=== PATIENT | male | born 1995 | race Caucasian/White ===

== ENCOUNTER 2021-11-03 15:57 | Emergency (ER) | payer OTHER, SELFPAY ==
[2021-11-03] VITALS (8 sets, daily range): BP systolic 123–127; BP diastolic 78–88; PULSE 68–80; RESP 15–18; TEMP 36.4–36.9; O2SAT 97–98; BMI 17.9
--- NOTE | 2021-11-03 18:02 | CM.ED ---
Social Work Consult: Mental Health evaluation Referral source: Dr. Ferguson Informant: Patient, patient father, and patient girlfriend. This protective services social worker noting that patient does not have insurance. This protective services social worker to patient room. Patient, patient father and patient girlfriend report that patient has insurance but unable to confirm which provider as insurance is through patient step-father. Patient girlfriend, Ronaldo working on obtaining insurance information for patient. Will continue to follow. Thang GREEN, ANETTE
[2021-11-03 18:15] LABS: Absolute Lymphocyte Count 1.57 X10^3/uL (0.83-4.51); Absolute Neutrophil Count 6.3 X10^3/uL (2.0-7.7); Basophil# 0.02 X10^3/uL; Basophil% 0.2 % (0-1); Eosinophil# 0.05 X10^3/uL; Eosinophils% 0.6 % (0-5); Hematocrit 45.1 % (40-54); Hemoglobin 15.5 g/dL (13.0-16.5); Lymphocyte # 1.57 X10^3/ul (0.83-4.51); Lymphocyte % 18.6 % (19-41); Mean Corp Hgb Conc 34.4 g/dL (32-36); Mean Corpuscular Hgb 30.2 pg (27.0-32.0); Mean Corpuscular Volume 87.7 fL (80-94); Mean Platelet Vol. 10.4 fl (6.2-12.0); Monocyte% 5.9 % (0-10); NRBC Flagged by Analyzer 0 % (0-5); Neutrophil # 6.26 X10^3/uL (2.7-7.7); Neutrophil % 74.3 % (47-70); Platelet Count 276 K/mm3 (150-450); RBC Distribution Width CV 12.2 % (11.6-14.6); RBC Distribution Width SD 39.6 fl (35.1-43.9); Red Blood Count 5.14 M/mm3 (4.6-6.2); White Blood Count 8.4 K/mm3 (4.4-11.0)
--- NOTE | 2021-11-03 18:16 | EX.ED.VIS.PS ---
HPI HPI - Psych History of Present Illness Chief Complaint: Suicidal Informant: patient Associated Symptoms Associated Symptoms - Psych: Positive for Depressed, Change in sleeping, Decreased Concentration, Suicidal Thoughts, Easily distracted, Pressured Speech, Paranoia and Visual Hallucinations Specific plan (suicidal thought): Shoot self in denominational Narrative Narrative: Ifeoma Chacon is a 26-year-old female with no past medical history presenting with depression, anxiety and suicidal ideation. Currently patient's been having worsening mental state for the past 2 weeks after using Magic mushrooms while in the [place]. For the past few days patient's not slept, has been paranoid and had increased impulsivity. He states he cannot think straight. He feels like he is alternate between depression and amna. He states I do not know if I am who I thought I was. And he feels that something is not right about me. For me he denies any current suicidal ideations and states he does not want to but then when I asked him if he is ever thought of killing himself how he would he answers by shooting himself in the denominational or driving his car into traffic. Mother has history of bipolar disorder. PFSH PFSH Medical History no medical history Home Medications NK 11/03/21 [History Last Taken Unknown] Allergy/AdvReac Type Severity Reaction Status Date / Time No Known Allergies Allergy Verified 11/03/21 16:00 Social History Smoking Status: Current every day smoker tobacco type: e-cigarettes ROS ROS ED Constitutional Constitutional ED: Denies chills or fever(s) Eyes Eyes: Denies change in vision ENT ENT ED: Denies rhinorrhea Cardiovascular Cardiovascular: Denies chest pain Respiratory/Chest Respiratory/Chest: Denies cough or dyspnea Gastrointestinal Gastrointestinal: Denies abdominal pain, nausea or vomiting Musculoskeletal Musculoskeletal: Denies arthralgias or myalgias Integumentary Denies rash Neurologic Neurologic: Denies headache(s) or weakness Psychiatric Psychiatric: Reports anxiety, depression, suicidal ideation and suicidal thoughts EXAM Physical Exam Const Vital Signs: 11/03/21 16:00 11/03/21 16:59 11/03/21 18:00 Temperature 98.4 F Temperature Source Temporal Pulse Rate 80 Respiratory Rate 15 16 16 Blood Pressure 127/88 H Blood Pressure Mean 101 Pulse Ox 98 Oxygen Delivery Method Room Air 11/03/21 19:00 11/03/21 20:00 11/03/21 21:00 Temperature 97.6 F L Temperature Source Temporal Pulse Rate 68 Respiratory Rate 17 18 16 Blood Pressure 123/78 H Blood Pressure Mean 93 Pulse Ox 97 Oxygen Delivery Method Room Air Room Air Room Air 11/03/21 22:00 Temperature Temperature Source Pulse Rate Respiratory Rate 15 Blood Pressure Blood Pressure Mean Pulse Ox Oxygen Delivery Method Room Air Positive well nourished and well developed General Appearance ED: well developed HEENT Reports moist mucous membranes normocephalic and atraumatic Eyes PERRL and EOMs intact bilaterally Neck supple Neck Narrative: No meningeal signs Resp normal respiratory effort Cardio no murmurs Rate: regular rate Rhythm: regular rhythm GI non-tender and non-distended Extremity normal to inspection General Extremety ED: Negative for edema or tenderness General Extremity: Negative for edema Neuro oriented x3 and no sensory deficits noted Motor Exam: muscle tone normal throughout Psych Appearance: grossly normal Attitude: paranoid and evasive Activity / Motor Behavior: appropriate eye contact Speech: rapid Mood & Affect: depressed, anxious and flat affect Thought Process: racing thoughts Thought Content: suicidality, No homicidality and No delusion(s) Attention / Concentration: attention grossly intact and concentration grossly impaired Insight: limited Judgement: poor Skin Lesions: no lesions Rashes: no rashes MDM MDM MDM Narrative Medical decision making narrative: Patient is evaluated for increased paranoia, depression and suicidal thoughts. He discussed some fleeting suicidal thoughts but no active plan with me however he told social work that he had previously put the gun to his mouth and did want to kill himself actively. In addition patient appears to be internally stimulated, paranoid and possibly manic. Patient is medically cleared. Will be evaluated for inpatient psychiatric evaluation. Lab Data Labs: Laboratory Results - last 24 hr 11/03/21 11/03/21 11/03/21 17:55 17:55 17:55 WBC 8.4 RBC 5.14 Hgb 15.5 Hct 45.1 MCV 87.7 MCH 30.2 MCHC 34.4 RDW Std Deviation 39.6 RDW Coeff of Meron 12.2 Plt Count 276 MPV 10.4 Immature Gran % (Auto) 0.400 Neut % (Auto) 74.3 H Lymph % (Auto) 18.6 L Morris % (Auto) 5.9 Eos % (Auto) 0.6 Baso % (Auto) 0.2 Absolute Neuts (auto) 6.3 Absolute Lymphs (auto) 1.57 Nucleated RBC % 0 Sodium 141 Potassium 3.8 Chloride 105 Carbon Dioxide 27.0 Anion Gap 9 BUN 9 Creatinine 0.92 Estim Creat Clear Calc 107.12 Est GFR (MDRD) Af Amer 129 Est GFR (MDRD) Non-Af 107 BUN/Creatinine Ratio 9.8 L Glucose 95 Calcium 9.7 Urine Opiates Screen Urine Methadone Screen Ur Barbiturates Screen Ur Phencyclidine Scrn Ur Amphetamines Screen MDMA (Ecstasy) Screen U Benzodiazepines Scrn Urine Cocaine Screen U Cannabinoids Screen Ur Drug Screen Comment Ethyl Alcohol < 3.0 11/03/21 17:55 WBC RBC Hgb Hct MCV MCH MCHC RDW Std Deviation RDW Coeff of Meron Plt Count MPV Immature Gran % (Auto) Neut % (Auto) Lymph % (Auto) Morris % (Auto) Eos % (Auto) Baso % (Auto) Absolute Neuts (auto) Absolute Lymphs (auto) Nucleated RBC % Sodium Potassium Chloride Carbon Dioxide Anion Gap BUN Creatinine Estim Creat Clear Calc Est GFR (MDRD) Af Amer Est GFR (MDRD) Non-Af BUN/Creatinine Ratio Glucose Calcium Urine Opiates Screen NEGATIVE Urine Methadone Screen NEGATIVE Ur Barbiturates Screen NEGATIVE Ur Phencyclidine Scrn NEGATIVE Ur Amphetamines Screen NEGATIVE MDMA (Ecstasy) Screen NEGATIVE U Benzodiazepines Scrn NEGATIVE Urine Cocaine Screen NEGATIVE U Cannabinoids Screen POSITIVE H Ur Drug Screen Comment Ethyl Alcohol Rhythm Strip Rhythm Strip: Sinus Rhythm Rate: 60 Ectopy: None EKG Initial EKG: Attestation: I personally reviewed and interpreted this EKG as follows: Interpretation: Sinus Rhythm Comments: Normal sinus rhythm at a rate of 60 Normal axis Normal intervals Normal ST segments Discharge Plan Triage Chief Complaint: Suicidal ED Provider: Annie Ferguson Dx/Rx/DC Orders Clinical Impression: Depression with suicidal ideation, Acute paranoia Prescriptions: No Action NK Primary Care Provider: Care Physician,No Primary Referrals: Care Physician,No Primary [Primary Care Provider] - Disposition Disposition: Psychiatric Hospital or Unit
[2021-11-03 18:28] LABS: Anion Gap 9 (5-15); BUN 9 mg/dL (7-18); BUN/Creat Ratio 9.8 RATIO (10-20); Calcium,Total 9.7 mg/dL (8.5-10.1); Chloride 105 mmol/L (98-107); Creatinine, Serum 0.92 mg/dL (0.70-1.30); EST Glomerular Filtration Rate 107 mL/min (>60); Est Glom Filt Rate - Afr Amer 129 mL/min (>60); Estimated Creatinine Clearance 107.12 ml/min; Glucose 95 mg/dL (74-106); Potassium 3.8 mmol/L (3.5-5.1); Sodium Level 141 mmol/L (136-145)
[2021-11-03 18:33] LABS: Amphetamine Urine VISTA NEGATIVE (<1000 ng/mL); Barbiturate Urine VISTA NEGATIVE (< 200 ng/mL); Benzodiazepine Urine VISTA NEGATIVE (< 200 ng/mL); Cocaine Urine VISTA NEGATIVE (< 300 ng/mL); Ecstacy Urine VISTA NEGATIVE (< 500 ng/mL); Methadone Urine VISTA NEGATIVE (< 300 ng/mL); PCP Urine VISTA NEGATIVE (< 25 ng/mL); THC Urine VISTA POSITIVE (< 50 ng/mL); Vista UDS pH Range 5
--- NOTE | 2021-11-03 19:06 | CM.ED ---
Social Work Consult: Mental Health Referral source: Dr. Ferguson Informants: Patient (Ramez Ruff), patient father (Gerhard Ruff) and patient girlfriend (Ronaldo Ruelas). Chief Complaint: Patient states I have been confused. Patient unable to clarify how long patient has been confused. Per Ronaldo patient has been acting odd and getting worse over the past few weeks. Later patient states reason for coming to the ED is I can't tell if I did something wrong with cryptic messages. Marital/Social History: Single. Living Situation: Lives in an apartment with Ronaldo. Support/Resources: No active counseling services. Ronaldo and patient family as main support system. History: No, I don't think so. Education/Employment History: Completed high school no issues with reading and writing. Patient states I quite my job, I think. Patient states to believe to have quite job via txt. Patient unable to specify when patient quite job. Ronaldo states to believe that patient txt work last Monday. Ronaldo states that work wanted patient to keep working and was attempting to work with patient on convincing patient to continue with employment at [employer]. Patient states I think they wanted me gone. When speaking about work. Tasia are under the understanding that patient work wanted patient to stay. Mental Health Treatment/History: When this social science manager inquired if patient has any mental health history. Patient states I am confused. This social science manager attempted to explain mental health history and patient interrupted and states yes depression, oh and suicide. Patient with no mental health history or inpatient psychiatric placement per Tasia. Patient mother has a history of Bi-polar. Triggers/Stressors: Unable to identify. Ronaldo leonidas Hennessy deny any current changes. Coping Skills: Unable to identify. Abuse Issues: Denies. Substance Abuse Hx: Reports to use Marijuana. Patient denies other substance abuse such as alcohol, meth, cocaine, heroin. Risk to Self/Others: When this social science manager inquired if patient has any suicidal thoughts patient states yes, now. This social science manager inquired if patient has thought about how patient would complete suicide. Patient states anything in the room. This social science manager inquired if patient has ever thought of suicide in the past, patient states yes. This social science manager inquired if patient has ever attempted to complete suicide. Patient states I think I put a gun in my mouth. Patient denies homicidal thoughts, plans, intents or history of. Patient denies violent behaviors or legal issues. Mental Status Exam: A&Ox3 Appearance/General Behavior: Clean, disheveled. agitated. Mood/Affect: Elevated. Anxious. Bizarre. Communication Pattern: Responds to questions with pressured or rapid speech. Would sometimes say I am confused and what did you say. Thought Process: Reports paranoia and to not feel safe. Patient reports to be hearing things through my phone. Patient unable to say what patient is hearing through phone. Patient denies visual hallucinations. Judgement: Poor Insight: Poor Assessment: Met with patient in room. Introduced self and social science manager role. Tasia present in room. Patient agreeable to speak with this social science manager and this social science manager asking Ronaldo and Gerhard to leave during conversation. Patient reports to be scared and confused often throughout assessment. Patient would pause and then loose track of what the question was often. Patient with flight of ideas and rapid speech. Patient able to identify having paranoia but with no specific cause. Patient asked if Ronaldo and Gerhard could return to room as I feel safer with them. This social science manager voiced understanding to this and able to have Ronaldo and Gerhard come back to the room. Tasia able to assist with answer assessment questions as noted above. Patient states I know I was going crazy when I started looking my name up on phone. Active support and listening provided. Collaborating with Dr. Ferguson. Dr. Ferguson pink slipped patient. Plan is for inpatient psychiatric placement to be facilitated. Patient to have 1:1 sitter. PLAN: Inpatient psychiatric placement. Will continue to follow. hTang GREEN, ANETTE
[2021-11-03 19:33] LABS: Alcohol, Blood (Medical)-Serum < 3.0 mg/dL
--- NOTE | 2021-11-03 19:47 | CM.ED ---
Social Work Telephone call to Gabrielle Garcia. Gabrielle reports to have open beds. Clinical information faxed. Telephone call to Aminta Brooks. Aminta reports to have open beds. Clinical information faxed. PLAN: Inpatient psychiatric placement. Will continue to follow. Thang GREEN, ANETTE
--- NOTE | 2021-11-03 20:27 | CM.ED ---
Social Work Telephone call from [place], Eric. Van reports to now not have an open bed but to hold onto referral is bed status would change. Telephone call to Adrianne porter. This dialysis social worker updated Adrianne on referral status as end of dialysis social worker shift. Clinical information faxed to [place]. Thang GREEN, ANETTE
--- NOTE | 2021-11-03 22:49 | ED.RN ---
latosha agustin called to check patient status at this time. they are waiting phone call back from doctor for acceptance or denial
--- NOTE | 2021-11-03 23:46 | NURSING ---
ACCEPTED TO [facility] BY DR. JOSE RENAE UNIT [phone]
[2021-11-04] VITALS (8 sets, daily range): BP systolic 120–124; BP diastolic 75–87; PULSE 50–57; RESP 13–18; TEMP 36.6–37.1; O2SAT 97–100
== END 2021-11-04 06:35 ==
PROVIDERS: Emergency Provider Emergency Medicine; Visit Provider Emergency Medicine
DX: F32.A Depression, unspecified (principal); F22 Delusional disorders; F41.9 Anxiety disorder, unspecified; R45.851 Suicidal ideations; F17.290 Nicotine dependence, other tobacco product, uncomplicated; Z81.8 Family history of other mental and behavioral disorders
CPT/HCPCS: 80048; 80307; 82077; 85025; 87811; 93005; 99285

== ENCOUNTER 2022-02-13 02:03 | Emergency (ER) | payer OTHER, SELFPAY ==
[2022-02-13 02:04] VITALS: BP 144/92; PULSE 94; RESP 16; TEMP 36.3; O2SAT 98; BMI 20.4
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
[2022-02-13 03:01] LABS: Anion Gap 7 (5-15); BUN 13 mg/dL (7-18); BUN/Creat Ratio 14.3 RATIO (10-20); Calcium,Total 8.8 mg/dL (8.5-10.1); Chloride 111 mmol/L (98-107); Creatinine, Serum 0.91 mg/dL (0.70-1.30); EST Glomerular Filtration Rate 108 mL/min (>60); Est Glom Filt Rate - Afr Amer 131 mL/min (>60); Glucose 95 mg/dL (74-106); Potassium 3.9 mmol/L (3.5-5.1); Sodium Level 145 mmol/L (136-145)
[2022-02-13 03:08] VITALS: RESP 17
[2022-02-13 03:16] LABS: Absolute Lymphocyte Count 2.29 X10^3/uL (0.83-4.51); Absolute Neutrophil Count 7.1 X10^3/uL (2.0-7.7); Basophil# 0.05 X10^3/uL; Basophil% 0.5 % (0-1); Eosinophil# 0.11 X10^3/uL; Eosinophils% 1.1 % (0-5); Hemoglobin 15.4 g/dL (13.0-16.5); Lymphocyte # 2.29 X10^3/ul (0.83-4.51); Lymphocyte % 23.2 % (19-41); Mean Corp Hgb Conc 33.5 g/dL (32-36); Mean Corpuscular Hgb 29.8 pg (27.0-32.0); Mean Platelet Vol. 10.8 fl (6.2-12.0); Monocyte# 0.31 X10^3/uL; Monocyte% 3.1 % (0-10); NRBC Flagged by Analyzer 0 % (0-5); Neutrophil # 7.08 X10^3/uL (2.7-7.7); Neutrophil % 71.9 % (47-70); Platelet Count 275 K/mm3 (150-450); RBC Distribution Width CV 11.9 % (11.6-14.6); RBC Distribution Width SD 38.9 fl (35.1-43.9); Red Blood Count 5.17 M/mm3 (4.6-6.2); White Blood Count 9.9 K/mm3 (4.4-11.0)
[2022-02-13 03:35] LABS: Amphetamine Urine VISTA NEGATIVE (<1000 ng/mL); Barbiturate Urine VISTA NEGATIVE (< 200 ng/mL); Benzodiazepine Urine VISTA NEGATIVE (< 200 ng/mL); Cocaine Urine VISTA NEGATIVE (< 300 ng/mL); Ecstacy Urine VISTA NEGATIVE (< 500 ng/mL); Methadone Urine VISTA NEGATIVE (< 300 ng/mL); PCP Urine VISTA NEGATIVE (< 25 ng/mL); THC Urine VISTA POSITIVE (< 50 ng/mL); Vista UDS pH Range 4
[2022-02-13 04:00] VITALS: RESP 15
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
[2022-02-13 05:00] VITALS: RESP 15
[2022-02-13 06:48] VITALS: RESP 16
--- NOTE | 2022-02-13 09:32 | ED.RN ---
PT DRINKING GATORADE. STATES DOES NOT REMEMBER MAKING STATEMENTS REGARDING BEING SUICIDAL LAST NIGHT. STATES I DON'T REMEMBER LAST NIGHT. DR AWARE. PT AWARE WE WILL REDRAW AN ETOH IN A FEW HOURS AND THEN ASSESS PT.
[2022-02-13 09:57] VITALS: BP 160/80; PULSE 87; RESP 16; O2SAT 99
--- NOTE | 2022-02-13 12:56 | ED.RN ---
Per , no crisis evaluation is needed. Pt. can be discharged home.
== END 2022-02-13 12:56 | disposition home or self-care (01) ==
PROVIDERS: Emergency Medicine; Emergency Provider Emergency Medicine; Visit Provider Emergency Medicine
DX: F10.129 Alcohol abuse with intoxication, unspecified (principal); Y90.8 Blood alcohol level of 240 mg/100 ml or more; R45.851 Suicidal ideations; F17.290 Nicotine dependence, other tobacco product, uncomplicated
CPT/HCPCS: 70450; 80048; 80307; 82077; 85025; 99283